=== PATIENT | male | born 1965 | race Caucasian/White ===

== ENCOUNTER 2021-11-26 11:46 | Outpatient (CLI) | payer OTHER ==
[~2021-11-26] VITALS: Ht 172.7 cm; Wt 83.5 kg
[2021-11-30] MEDS ORDERED: CEFAZOLIN SOD 1 GM in D5W 50 ML IV ONE (07:00)
== END 2021-11-26 15:00 | disposition home or self-care (01) ==
LOC: SLB 11:46 → EDSTATUS 11-30 11:45
PROVIDERS: ATTEND Colon & Rectal Surgery
DX: U07.1 COVID-19 (principal); Z01.812 Encounter for preprocedural laboratory examination; K40.90 Unilateral inguinal hernia, without obstruction or gangrene, not specified as recurrent; K42.0 Umbilical hernia with obstruction, without gangrene
CPT/HCPCS: J0690; J7060; U0003

== ENCOUNTER 2021-12-21 05:30 | Day surgery (SDC) | payer OTHER, SELFPAY ==
[~2021-12-21] VITALS: Ht 172.7 cm; Wt 83.9 kg
[2021-12-21] MEDS ORDERED: CEFAZOLIN 1 GM IVPB PREMIX 50 ML IV ONE (07:00)
[2021-12-21] MEDS ORDERED: BUPIVACAINE /PF 0.25% 30 ML VIAL INJ ONE (08:00)
[2021-12-21] MEDS ORDERED: DESFLURANE 15 MIN GAS INH ONE (08:00)
[2021-12-21] MEDS ORDERED: ONDANSETRON HCL 4 MG/2 ML VIAL ONE (08:00)
[2021-12-21] MEDS ORDERED: GLYCOPYRROLATE 0.2 MG/ML VIAL ONE (08:00)
[2021-12-21] MEDS ORDERED: ROCURONIUM BROMIDE 10 MG/ML (ZEMURON) ONE (08:00)
[2021-12-21] MEDS ORDERED: DEXAMETHASONE SOD PHOSPHATE 4 MG/ML VIAL ONE (08:00)
[2021-12-21] MEDS ORDERED: LR 1,000 ML IV.SOLN IV ONE (08:00)
[2021-12-21] MEDS ORDERED: NS IRRIG SOLN 1000 ML IR ONE (08:00)
[2021-12-21] MEDS ORDERED: NS 50 ML BAG IV ONE (08:00)
[2021-12-21] MEDS ORDERED: PROPOFOL 200MG/ 20ML VIAL (DIPRIVAN) IV ONE (08:00)
[2021-12-21] MEDS ORDERED: fentaNYL CITRATE 250 MCG/5 ML AMP ONE (08:00)
[2021-12-21] MEDS ORDERED: MIDAZOLAM HCL 5 MG/ML VIAL (VERSED) IV ONE (08:00)
[2021-12-21] MEDS ORDERED: SUGAMMADEX SODIUM 200 MG/2 ML VIAL IV ONE (08:00)
[2021-12-21] MEDS ORDERED: LR 1,000 ML IV SCH (09:00)
[2021-12-21] MEDS ORDERED: MIDAZOLAM HCL 2 MG/2 ML VIAL (VERSED) IVP PRN (09:00)
[2021-12-21] MEDS ORDERED: METOCLOPRAMIDE HCL 10 MG/2 ML VIAL IVP PRN (09:00)
[2021-12-21] MEDS ORDERED: hydrALAZINE HCL 20 MG/ML VIAL IVP PRN (09:00)
[2021-12-21] MEDS ORDERED: HYDROmorphone 1 MG/ML INJ. CARTRIDGE IVP PRN ×2 (09:00)
[2021-12-21] MEDS ORDERED: MEPERIDINE HCL/PF 25 MG/ML DISP.SYRIN IVP PRN (09:00)
[2021-12-21] MEDS ORDERED: HYDROcodone/ACETAMIN 5-325 MG TAB (NORCO/ VICODIN) PO PRN (10:15)
[2021-12-21] MEDS ORDERED: D5/0.45 NS 1,000 ML IV SCH (10:15)
[2021-12-21 13:26] VITALS: BP_SYST 124
== END 2021-12-21 12:25 | disposition home or self-care (01) ==
LOC: SDS 05:30 → SMU 05:30 → SDS 12:25
PROVIDERS: ATTEND Colon & Rectal Surgery
DX: K42.0 Umbilical hernia with obstruction, without gangrene (principal); K40.90 Unilateral inguinal hernia, without obstruction or gangrene, not specified as recurrent; I25.10 Atherosclerotic heart disease of native coronary artery without angina pectoris; I50.9 Heart failure, unspecified; Z95.810 Presence of automatic (implantable) cardiac defibrillator; I48.91 Unspecified atrial fibrillation; E78.5 Hyperlipidemia, unspecified; I25.2 Old myocardial infarction; Z20.822 Contact with and (suspected) exposure to COVID-19; Z79.899 Other long term (current) drug therapy
CPT/HCPCS: 36415; 88302; C1781; J0690; J1100; J2250; J2405; J2704; J3010; J3490; J7120; U0003